=== PATIENT | female | born 1985 | race Hispanic/Latino ===

== ENCOUNTER 2017-04-16 23:26 | Inpatient (IN) | payer OTHER ==
--- NOTE | 2017-04-17 00:02 | C.PDOC ---
History Of Present Illness Patient seen francisco j for opiate detox. She is ., used heroin this morning. abuse also of marijuana. Time Seen by Provider: 04/17/17 00:02 Chief Complaint (Nursing): Substance Abuse History Per: Patient History/Exam Limitations: no limitations Onset/Duration Of Symptoms: Days Current Symptoms Are (Timing): Still Present Suicide/Self Injury Attempted (Context): None Modifying Factor(s): Marijuana, Narcotics Severity: Moderate Pain Scale Rating Of: 0 Associated Symptoms: denies: Anger, Anxiety, Agitation, Depression Involuntary Hold By: None Recent travel outside of the [place]: No Additional History Per: Patient Past Medical History Vital Signs: Last Vital Signs Temp 98.1 F 04/16/17 23:44 Pulse 75 04/16/17 23:44 Resp 22 04/16/17 23:44 BP 118/79 04/16/17 23:44 Pulse Ox 100 04/17/17 00:08 - Medical History PMH: No Chronic Diseases Surgical History: No Surg Hx Family History: States: Unknown Family Hx - Social History Hx Alcohol Use: Yes Hx Substance Use: Yes - Immunization History Hx Tetanus Toxoid Vaccination: No Hx Pneumococcal Vaccination: No Review Of Systems Constitutional: Negative for: Fever, Chills, Sweats Cardiovascular: Negative for: Chest Pain, Palpitations, Orthopnea, Paroxysmal Noc. Dyspnea, Edema, Light Headedness Respiratory: Negative for: Cough, Shortness of Breath Gastrointestinal: Negative for: Nausea, Vomiting, Abdominal Pain Genitourinary: Negative for: Dysuria, Frequency, Hematuria, Vaginal Discharge, Vaginal Bleeding Musculoskeletal: Negative for: Neck Pain Neurological: Negative for: Weakness, Numbness, Incoordination, Change in Speech Psych: Negative for: Anxiety, Depression, Withdrawal Physical Exam - Physical Exam Appears: Well, Non-toxic, No Acute Distress Skin: Normal Color Eye(s): bilateral: Normal Inspection, PERRL, EOMI Nose: Normal Oral Mucosa: Moist Tongue: Normal Appearing Lips: Normal Appearing Throat: Normal Neck: Normal Chest: Symmetrical, No Deformity, No Tenderness Cardiovascular: Rhythm Regular, No Edema, No Murmur, No JVD Respiratory: Normal Breath Sounds Gastrointestinal/Abdominal: Normal Exam Back: Normal Inspection Extremity: Normal ROM, No Swelling, Other (no tremors) Extremity: Bilateral: Atraumatic Neurological/Psych: Oriented x3, Normal Speech, Normal Cognition, Normal Cranial Nerves Gait: Steady Additional Physical Exam Comments: LMP- 2016 ED Course And Treatment - Laboratory Results Result Diagrams: 04/17/17 00:17 04/17/17 00:17 O2 Sat by Pulse Oximetry: 100 Disposition Discussed With : Karen Pastrana Doctor Will See Patient In The: Hospital Counseled Patient/Family Regarding: Diagnosis - Disposition Disposition: HOSPITALIZED Disposition Time: 02:01 Condition: STABLE Forms: [facility] (Slovak) - POA Present On Arrival: None - Clinical Impression Clinical Impression: Opiate abuse, continuous,
[2017-04-17 00:24] LABS: BASO # 0.1 K/uL (0.0-0.2); BASO % 0.6 % (0.0-2.0); EOS # 0.2 K/uL (0.0-0.7); EOS % 1.4 % (0.0-4.0); HEMOGLOBIN 12.5 g/dL (11.0-16.0); LYMPH # 2.9 K/uL (1.0-4.3); LYMPH % 21.3 % (20.0-40.0); MEAN CELL VOLUME 86.5 fL (81.0-99.0); MEAN CORPUSCULAR HEMOGLOBIN 31.2 pg (27.0-31.0); MEAN CORPUSCULAR HGB CONC 36.1 g/dL (33.0-37.0); MONO # 0.6 K/uL (0.0-0.8); MONO % 4.3 % (0.0-10.0); NEUT % 72.4 % (50.0-75.0); WHITE BLOOD COUNT 13.8 K/uL (4.8-10.8)
[2017-04-17 00:29] LABS: SQUAMOUS EPITHIAL 12 /hpf (0-5); URINE BACTERIA RARE (<OCC); URINE BILIRUBIN NEGATIVE (NEGATIVE); URINE BLOOD NEGATIVE (NEGATIVE); URINE CLARITY Hazy (Clear); URINE COLOR Amber (YELLOW); URINE GLUCOSE (UA) NORMAL (Normal); URINE LEUKOCYTE ESTERASE TRACE Leu/uL (Negative); URINE PROTEIN NEGATIVE (NEGATIVE)
[2017-04-17 00:30] LABS: HCG,QUALITATIVE URINE POSITIVE (NEGATIVE)
[2017-04-17 00:38] LABS: ALB/GLOB RATIO 1.2 (1.0-2.1); ALT/SGPT 19 U/L (9-52); AST/SGOT 19 U/L (14-36); BLOOD UREA NITROGEN 8 mg/dL (7-17); CALCIUM 8.9 mg/dl (8.6-10.4); GFR AFRICAN-AMERICAN > 60; GFR NON-AFRICAN AMERICAN > 60
[2017-04-17 00:46] LABS: BARBITURATES, UR NEGATIVE (NEGATIVE); BENZODIAZEPINES, UR NEGATIVE (NEGATIVE); PHENCYCLIDINE, UR NEGATIVE (NEGATIVE)
[2017-04-17] MEDS ORDERED: Potassium Chloride 20 mEq/15 ml LIQ UD PO STA (01:04)
[2017-04-17] MEDS ORDERED: Sodium Chloride 0.9% 1,000 ML IV ONE (01:05)
[2017-04-17] MEDS ORDERED: Potassium Chloride 20 mEq ER Tab PO ONE (01:09)
[2017-04-17 01:12] LABS: OPIATES, UR POSITIVE (NEGATIVE)
--- NOTE | 2017-04-17 05:07 | PCM.BM ---
<Jeniffer Marr - Last Filed: 04/17/17 05:02> Treatment Plan Problems - Problems identified on initial assessmt Opiate Dependence Date Initiated: 04/17/17 Time Initiated: 05:04 Assessment reference: NA Status: Active Treatment assets and liabiliti Patient Assests: ADL independent Patient Liabilities: substance abuse - Milieu Protocol Maintain good personal hygiene: daily Encourage regular showers, daily Remind patient to perform daily oral care, daily Assist patient to perform ADL's Maintain personal safety: every shift Educate patient to report safety concerns to staff, every shift Monitor environment for contraband/sharps Medication safety: Monitor for expected outcome, potential side effects: every shift, Assess barriers to learning: every shift, Assess readiness for medication education: every shift <Pat Herrera - Last Filed: 04/18/17 18:01> - Diagnosis (1) Opiate abuse, continuous Status: Acute Interventions: 04/18/17 18:01 * Assess 7x/week regarding severity of withdrawal * Educate regarding risks, benefits, side effects and alternatives of medications * Use Motivational Interviewing for abstinence * Use CBT for relapse prevention * Medication management for withdrawal symptoms * Encourage medication assisted treatment *
[2017-04-17] MEDS ORDERED: Multiple Vitamins Tab PO SCH (10:00)
--- NOTE | 2017-04-17 13:19 | PCM.PSYCH ---
Initial Psychiatric Evaluation - Initial Psychiatric Evaluation Type of Admission: Voluntary Legal Status: Capacity Chief Complaint (in patient's own words): "I'm here for detox" History of Present Illness and Precipitating Events: 31 yo white F, [id number]@10 weeks gestation, , employed, insured, currently living in [place], [place], who presents to here for detox for heroin. Patient reports that she began using 3-4 years ago. She estimates her use at 10 bags of heroin intranasally/day. Her longest period of sobriety was 2.5 years which was when she spent that time in a rehab facility. Her relapse occurred this past February, and is attributed to increased stress & anxiety she has been facing. Patient admits to occasional marijuana use but denies use of cocaine, crack, opioids, benzos, xanax or other substances. At this time, patient reports feelings of flushing, hot/cold intolerance, rhinorrhea, sweats and yawning. Denies any tremors, seizure, abdominal pain, n/v/d. 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 Detox Hx: 1x prior to rehab Rehab Hx: Completed rehab at [facility] ([place], [place]) from [id number] Medical Hx: Denies Surgical Hx: Septal surgery for deviated septum Medications: Denies Psych Hx: Denies Hospitalization: She has had 1x prior inpatient psychiatric hospitalization during her teen years for EtOH and SI Fam Hx: Her father has a h/o substance abuse with crack cocaine. Her family is well aware of her substance usage and is supportive on her path to get clean. Living situation: Patient currently living in a rented apartment with her whom they rent from her mother. Her also uses heroin and is currently completing detox in [place]. GynHx: [id number](miscarriage)L0 at 10 weeks gestation. FDLMP was 01/28/18. She is currently receiving care with Dr. Tim Castle ([place], [place]). She is scheduled to her have her 1st U/S in a few days Current Medications: Active Medications Generic Name Dose Route Start Last Admin Trade Name Freq PRN Reason Stop Dose Admin Diphenhydramine HCl 25 mg 04/17/17 12:50 Benadryl PO HS PRN Insomnia Methadone HCl 20 mg 04/17/17 10:00 04/17/17 10:53 Methadone PO 04/21/17 09:59 20 mg Q24H CARROL Administration Taper Multivitamins 1 tab 04/17/17 10:00 04/17/17 10:53 Hexavitamin PO 1 tab DAILY CARROL Administration Nicotine 1 patch 04/17/17 13:00 Nicoderm Cq TD DAILY CARROL Nitrofurantoin Macrocrystals 100 mg 04/17/17 13:00 Macrobid PO 04/21/17 13:01 Q12H [facility] Protocol Multivit/Folic Acid/Iron 1 tab 04/17/17 13:00 PO DAILY CARROL Past Psychiatric History - Past Psychiatric History History of ETOH/Drug Use: (+) heroin, MJ History of Family Illness: father suffered from substance addiction Pertinent Medical Hx (Current Medical&Sleep Prob, Allergies): Allergies Allergy/AdvReac Type Severity Reaction Status Date / Time Penicillins Allergy Mild Verified 04/16/17 23:54 No Known Home Med 04/16/17 Review of Systems - Constitutional Constitutional: Chills, Sweats Additional comments: (+) hot/cold intolerance, (+) yawning - EENT Nose/Mouth/Throat: Nasal Congestion, Nasal Discharge - Respiratory Respiratory: absent: Dyspnea - Gastrointestinal Gastrointestinal: absent: Abdominal Pain, Constipation, Diarrhea, Nausea, Vomiting - Neurological Neurological: absent: Numbness, Weakness Mental Status Examination - Personal Presentation Personal Presentation: Looks stated age - Affect Affect: Broad - Motor Activity Motor Activity: Calm - Reliability in Providing Information Reliability in Providing Information: Good - Speech Speech: Organized - Mood Mood: Anxious - Formal Thought Process Formal Thought Process: No Impairment - Obsessions/Compulsions Obsessions: No Compulsions: No - Cognitive Functions Orientation: Person, Place, Situation, Time Sensorium: Alert Attention/Concentration: Attentive Abstract Thinking: [place] Estimate of Intelligence: Above Average Judgement: Imparied, as evidence by: Lack of insight into illness Memory: Recent intact, as evidence by: Ability to recall events of the day, Remote intact, as evidenced by: Abilit to recall sig. life events - Risk Risk: Seizure, Withdrawal, Diminished functioning - Strength & Assets Inventory Strength & Assets Inventory: Intelligence, Family support, Employment status, Employment history, Skills, Life experience, Cooperative DSM 5 DX - DSM 5 DSM 5 Diagnosis: Opioid Withdrawal Opioid Use d/o - severe Cannabis use d/o - Recommended/Plan of Treatment Treatment Recommendations and Plan of Treatment: Methadone detox As needed medications, including Macrobid for asymptomatic bacturia seen on UA All risks, benefits and alternatives of the meds discussed, including their use in , and the pt agreed and understood. Attend groups and activities Supportive therapy and psychoeducation [place] for abstinence CBT for relapse prevention Encourage MAT while Refer to IOP, and self-help groups Smoking cessation with [place] Nicotine patch 34 min Projected ELOS: 4-5 days Prognosis: Good with treatment Discharge Plan and Discharge Criteria: Rehab and MAT - Smoking Cessation Smoking Cessation Initiated: Yes
[2017-04-17] MEDS: Prenatal Multivit/Folic Acid/Iron Tab PO SCH (13:53)
[2017-04-18] MEDS: Prenatal Multivit/Folic Acid/Iron Tab PO SCH (09:14)
--- NOTE | 2017-04-18 13:24 | PCM.PYCHPN ---
Psychiatric Progress Note - Psychiatric Progress Note Patient seen today, length of contact: 16 min Patient Chief Complaint: "I'm having some difficulty sleeping" Problems Identified/Issues Discussed: The pt is seen, chart reviewed, case discussed with staff. Patient admits to having had some difficulty sleeping last night, intermittent abdominal pain and a few bouts of diarrhea. Denies any persistent pain, hematochezia, or symptoms.The pt is compliant with medications and reports no side-effects. She is otherwise improving and patient needs more time to stabilize. After care discussed, support and psychoeducation given. Her plan at this time is to continue f/u care with [facility] in [place]. Medication Change: Yes (detox changes daily) Medical Record Reviewed: Yes Mental Status Examination - Cognitive Function Orientation: Person, Place, Situation, Time Memory: Intact Attention: WNL Concentration: WNL Association: WNL Fund of Knowledge: WNL - Mood Mood: Neutral - Affect Affect: Broad - Speech Speech: Appropriate - Formal Thought Process Formal Thought Process: No Impairment - Suicidal Ideation Suicidal Ideation: No - Homicidal Ideation Homicidal Ideation: No Goal/Treatment Plan - Goal/Treatment Plan Need for Continued Stay: Severe depression anxiety, Discharge may exacerbated symptoms Progress Toward Problem(s) and Goals/Treatment Plan: Methadone detox, will give additional 5mg dose to help with diarrhea As needed medications, including Macrobid for asymptomatic bacturia seen on UA. Will also increase dose of benadryl to help with sleep All risks, benefits and alternatives of the meds discussed, including their use in , and the pt agreed and understood. Attend groups and activities Supportive therapy and psychoeducation [place] for abstinence CBT for relapse prevention Encourage MAT while Refer to IOP, and self-help groups Smoking cessation with [place] Nicotine patch Estimated Date of D/C: 04/21/17 - Smoking Cessation Smoking Cessation Initiated: Yes
[2017-04-19] MEDS: Prenatal Multivit/Folic Acid/Iron Tab PO SCH (08:59)
--- NOTE | 2017-04-19 11:47 | CP.PCM.CON ---
Addendum entered and electronically signed by Jose Banuelos DO 04/19/17 16:07: Assessment: Pelvic US shows placenta Previa. Plan: Recommend pelvic rest until f/u US in 4 weeks. Original Note: History of Present Illness - History of Present Illness History of Present Illness: 31 year old female with hx of Heroin/Tobacco Abuse with approximated FDLMP of 01/28/17 and estimated gestational age of 11 weeks 4 days admitted for detox 03/16 to Heroin abuse. OBGYN consulted on this patient for evaluation of . Patient denies any abdominal pain/cramping, movement, or uterine contractions. She denies any fevers. She does complain of chills but attributes it to her detoxification. She denies any headache, chest pain, shortness of breath, or abdominal pain. She does complain of nausea but denies any vomiting. She also complains of non-bloody diarrhea that started yesterday morning. She had two bowel movements since yesterday morning. She denies any dysuria, hematuria, or increased urinary frequency. Patient is currently on Macrobid for UTI. She states she has 2 days left of her Macrobid regiment. PMHx: UTI PSHx: Deviated Septum (2002) Allergies: Penicillins (HIVES) Social Hx: 1/2-1PPD for 16 years. Denies Alcohol. Admits to heroin abuse Fam Hx: Grandmother/Maternal Aunt with hx of heavy menstrual bleeding Meds: Benadryl PRN ObHx 1. 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 Last Pap was 04/06/16 Denies hx of Uterine Fibroids of Cyst Review of Systems - Review of Systems Review of Systems: As per HPI Past Patient History - Past Social History Smoking Status: Heavy Smoker > 10 Cigarettes Daily - CARDIAC Hx Cardiac Disorders: No Hx Hypertension: No - PULMONARY Hx Tuberculosis: No - NEUROLOGICAL HX Cerebrovascular Accident: No Hx Seizures: No - HEMATOLOGICAL/ONCOLOGICAL Hx Cancer: No Hx Human Immunodeficiency Virus (HIV): No - MUSCULOSKELETAL/RHEUMATOLOGICAL Hx Falls: No - GENITOURINARY/GYNECOLOGICAL Hx Sexually Transmitted Disorders: No - PSYCHIATRIC Hx Substance Use: No - SURGICAL HISTORY Hx Surgeries: Yes Other/Comment: deviated septum - ANESTHESIA Hx Anesthesia: Yes Hx Anesthesia Reactions: No Meds Allergies/Adverse Reactions: Allergies Allergy/AdvReac Type Severity Reaction Status Date / Time Penicillins Allergy Mild Verified 04/16/17 23:54 - Medications Medications: Current Medications Diphenhydramine HCl (Benadryl) 50 mg PO HS PRN PRN Reason: Insomnia Last Admin: 04/19/17 01:53 Dose: 50 mg Methadone HCl (Methadone) 10 mg PO Q24H CARROL PRN Reason: Taper Stop: 04/21/17 09:59 Last Admin: 04/19/17 08:59 Dose: 10 mg Nicotine (Nicoderm Cq) 1 patch TD DAILY CARROL Last Admin: 04/19/17 08:59 Dose: 1 patch Nitrofurantoin Macrocrystals (Macrobid) 100 mg PO Q12H CARROL PRN Reason: Protocol Last Admin: 04/19/17 06:48 Dose: 100 mg Multivit/Folic Acid/Iron () 1 tab PO DAILY CARROL Last Admin: 04/19/17 08:59 Dose: 1 tab Physical Exam - Constitutional Appears: Well, Non-toxic, No Acute Distress - Head Exam Head Exam: ATRAUMATIC, NORMAL INSPECTION - Eye Exam Eye Exam: EOMI, Normal appearance - ENT Exam ENT Exam: Mucous Membranes Moist - Neck Exam Neck exam: Negative for: Lymphadenopathy - Respiratory Exam Respiratory Exam: Clear to Auscultation Bilateral, NORMAL BREATHING PATTERN. absent: Accessory Muscle Use - Cardiovascular Exam Cardiovascular Exam: RRR, +S1, +S2 - GI/Abdominal Exam GI & Abdominal Exam: Normal Bowel Sounds, Soft. absent: Tenderness - Extremities Exam Extremities exam: Positive for: normal capillary refill, normal inspection. 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 Director Of Email Marketing on heroin cessation - Vitamins outpatient.
--- NOTE | 2017-04-19 12:04 | PCM.PYCHPN ---
Psychiatric Progress Note - Psychiatric Progress Note Patient seen today, length of contact: 17 min Patient Chief Complaint: "I'm having pain, diarrhea, anxiety, insomnia...not much though" Problems Identified/Issues Discussed: The pt is seen, chart reviewed, case discussed with staff. The pt is compliant with medications and reports no side-effects. Symptoms are improving but needs more time to stabilize. After care discussed, support and psychoeducation given. OB consulted Labs ordered Medication Change: Yes (detox changes daily) Medical Record Reviewed: Yes Mental Status Examination - Cognitive Function Orientation: Person, Place, Situation, Time Memory: Intact Attention: WNL Concentration: WNL Association: WNL Fund of Knowledge: WNL - Mood Mood: Neutral - Affect Affect: Broad - Speech Speech: Appropriate - Formal Thought Process Formal Thought Process: No Impairment - Suicidal Ideation Suicidal Ideation: No - Homicidal Ideation Homicidal Ideation: No Goal/Treatment Plan - Goal/Treatment Plan Need for Continued Stay: Severe depression anxiety, Discharge may exacerbated symptoms Progress Toward Problem(s) and Goals/Treatment Plan: Methadone detox, will give additional 5mg dose to help with diarrhea and wdw sxs OB consult appreciated As needed medications Macrobid for UTI Benadryl to help with sleep All risks, benefits and alternatives of the meds discussed, including their use in , and the pt agreed and understood. Attend groups and activities Supportive therapy and psychoeducation [place] for abstinence CBT for relapse prevention Encourage MAT while Refer to IOP, and self-help groups Smoking cessation with [place] Nicotine patch Estimated Date of D/C: 04/21/17
[2017-04-19 13:54] LABS: BASO % 0.2 % (0.0-2.0); EOS % 0.3 % (0.0-4.0); HEMOGLOBIN 14.2 g/dL (11.0-16.0); LYMPH # 2.2 K/uL (1.0-4.3); LYMPH % 14.6 % (20.0-40.0); MEAN CELL VOLUME 86.7 fL (81.0-99.0); MEAN CORPUSCULAR HEMOGLOBIN 30.4 pg (27.0-31.0); MEAN CORPUSCULAR HGB CONC 35.1 g/dL (33.0-37.0); MEAN PLATELET VOLUME 9.1 fL (7.2-11.7); MONO # 0.6 K/uL (0.0-0.8); MONO % 4.3 % (0.0-10.0); NEUT # 12.1 K/uL (1.8-7.0); NEUT % 80.6 % (50.0-75.0); NRBC % 0.1 % (0.0-2.0); RBC 4.67 Mil/uL (3.80-5.20); RED CELL DISTRIBUTION WIDTH 13.1 % (11.5-14.5)
--- NOTE | 2017-04-19 15:18 | US ---
Indication: Abdominal pain Comparison: None available Technique: Real-time transabdominal pelvic ultrasound was performed. In addition a transvaginal pelvic ultrasound was necessary to better depict pelvic anatomy. Findings: The uterus measures approximately 12.2 x 7.9 x 9.3 cm. Anteverted. 4.5 x 3.9 x 4.2 cm probable sub serosal fibroid noted within the left lower uterine segment uterus. Cervix length measures approximately 3.6 cm. There is a single intrauterine fetus present. The gestational sac measures 5.4 cm and is compatible with a gestational age of 11 weeks 3 days. The crown-rump length measures 4.8 cm and is compatible with a gestational age of 11 weeks 4 days. There is heart motion which measured 161 BPM. The placenta is identified covering the cervical os. The right ovary measures 3.8 x 2.0 x 2.6 cm. The left ovary measures 3.2 x 2.3 x 2.3 cm. Blood flow was demonstrated to both ovaries. Impression: Live single intrauterine with estimated gestational age 11 weeks 3 days by gestational sac calculation and 11 weeks 4 days by crown-rump length calculation. heart rate 161 bpm. Advise an anomaly screen at 16-18 weeks gestational age 4.5 x 3.9 x 4.2 cm probable sub serosal fibroid noted within the left lower uterine segment uterus. The placenta is noted to cover the cervical os. Recommend attention on subsequent imaging as cases can often resolve as the evolves.
[2017-04-19 16:17] LABS: ALB/GLOB RATIO 1.4 (1.0-2.1); ALBUMIN 4.6 g/dL (3.5-5.0); ALT/SGPT 18 U/L (9-52); AST/SGOT 18 U/L (14-36); BLOOD UREA NITROGEN 8 mg/dL (7-17); CALCIUM 9.8 mg/dl (8.6-10.4); GFR AFRICAN-AMERICAN > 60; GFR NON-AFRICAN AMERICAN > 60
[2017-04-20] MEDS: Prenatal Multivit/Folic Acid/Iron Tab PO SCH (09:13)
--- NOTE | 2017-04-20 12:14 | PCM.PYCHPN ---
Psychiatric Progress Note - Psychiatric Progress Note Patient seen today, length of contact: 20 min Patient Chief Complaint: "I'm better" Problems Identified/Issues Discussed: The pt is seen, chart reviewed, case discussed with staff. Support given, CBT and [place] used briefly No new symptoms reported, improving slowly and needs more time No SEs from medications, risks discussed. After care discussed and she tamara llikely NOT go to IOP b/c they found placenta previa in the USG. Water Inspector discussed with the pt and risks discussed. OB will also discuss. She took it well and agreed to rest. Medication Change: Yes (detox changes daily) Medical Record Reviewed: Yes Mental Status Examination - Cognitive Function Orientation: Person, Place, Situation, Time Memory: Intact Attention: WNL Concentration: WNL Association: WNL Fund of Knowledge: WNL - Mood Mood: Neutral - Affect Affect: Broad - Speech Speech: Appropriate - Formal Thought Process Formal Thought Process: No Impairment - Suicidal Ideation Suicidal Ideation: No - Homicidal Ideation Homicidal Ideation: No Goal/Treatment Plan - Goal/Treatment Plan Need for Continued Stay: Severe depression anxiety, Discharge may exacerbated symptoms Progress Toward Problem(s) and Goals/Treatment Plan: Methadone detox OB consult appreciated As needed medications Macrobid for UTI Benadryl to help with sleep All risks, benefits and alternatives of the meds discussed, including their use in , and the pt agreed and understood. Attend groups and activities Supportive therapy and psychoeducation [place] for abstinence CBT for relapse prevention Encourage MAT while Refer to IOP, and self-help groups Smoking cessation with [place] Nicotine patch Estimated Date of D/C: 04/21/17
[2017-04-21 09:09] VITALS: BP 109/73; PULSE 75; RESP 18; TEMP 98.3; O2SAT 99
[2017-04-21] MEDS: Prenatal Multivit/Folic Acid/Iron Tab PO SCH (09:23)
== END 2017-04-21 10:35 | disposition home or self-care (01) | DRG 781 ==
LOC: C.ER 23:26 → C.7D 04-17 02:04
PROVIDERS: ADMIT Psychiatry & Neurology Psychiatry; ATTEND Psychiatry & Neurology Psychiatry
PROC: HZ2ZZZZ Detoxification Services for Substance Abuse Treatment (ICD-10-PCS; principal; 2017-04-17)
PROC: HZ52ZZZ Individual Psychotherapy for Substance Abuse Treatment, Cognitive-Behavioral (ICD-10-PCS; 2017-04-17)
PROC: HZ59ZZZ Individual Psychotherapy for Substance Abuse Treatment, Supportive (ICD-10-PCS; 2017-04-17)
PROC: HZ56ZZZ Individual Psychotherapy for Substance Abuse Treatment, Psychoeducation (ICD-10-PCS; 2017-04-17)
PROC: HZ42ZZZ Group Counseling for Substance Abuse Treatment, Cognitive-Behavioral (ICD-10-PCS; 2017-04-17)
PROC: HZ46ZZZ Group Counseling for Substance Abuse Treatment, Psychoeducation (ICD-10-PCS; 2017-04-17)
DX: O99.321 Drug use complicating pregnancy, first trimester (principal); O23.41 Unspecified infection of urinary tract in pregnancy, first trimester; F11.23 Opioid dependence with withdrawal; O44.01 Complete placenta previa NOS or without hemorrhage, first trimester; Z3A.10 10 weeks gestation of pregnancy; O99.331 Smoking (tobacco) complicating pregnancy, first trimester; F17.210 Nicotine dependence, cigarettes, uncomplicated; O26.891 Other specified pregnancy related conditions, first trimester; G47.00 Insomnia, unspecified